=== PATIENT | male | born 1990 | race Caucasian/White ===

== ENCOUNTER 2016-08-05 23:18 | Emergency (ER) | payer BC ==
[~2016-08-05] VITALS: Ht 180.3 cm; Wt 140.9 kg
[2016-08-05 23:20] VITALS: Ht 180.3 cm; Wt 140.9 kg
--- NOTE | 2016-08-06 01:51 | RADRPT ---
PROCEDURE: RIGHT GREAT TOE - 3 VIEWS CLINICAL INDICATION: 26-year-old male with crush injury to the right great toe. TECHNIQUE: AP, lateral and oblique views of the right great toe was obtained. The images were rev iewed on a PACS workstation. COMPARISON: None. FINDINGS: The bones of the right great toe appear intact, with no evidence of fracture, dislocation, or sublux ation. The joint spaces are preserved. Bone mineralization is within normal limits. IMPRESSION: Unremarkable right great toe radiographs. .Moises Bauman MD, MD Date Time Electronically viewed and signed by .Moises Bauman MD, on 08/06/2016 01:51 .M/
--- NOTE | 2016-08-06 01:58 | ERD ---
ER Documentation Chief Complaint Date/Time DATE: 08/06/16 TIME: 01:58 Chief Complaint bleeding R big toe ingrown nail today HPI This is a 26-year-old male presenting to the emergency department complaining of a right first toe ingrown toenail for the past 6 months. Patient states that while he was walking today something crushed his toe and then it started bleeding. Patient rates the pain 6 out of 10. He denies any fevers. ROS All systems reviewed and are negative except as per history of present illness. Medications Home Meds Active Scripts Sulfamethoxazole-Trimethoprim* (Bactrim* DS) 800-160 Mg Tab, 1 TAB PO BID for 10 Days, TAB Prov:GWENDOLYN BEAULIEU PA-C 08/06/16 Cephalexin* (Keflex*) 500 Mg Capsule, 500 MG PO QID for 10 Days, CAP Prov:GWENDOLYN BEAULIEU PA-C 08/06/16 Allergies Allergies: Coded Allergies: No Known Allergy (Unverified , 08/05/16) PMhx/Soc Medical and Surgical Hx: pt denies Medical Hx, pt denies Surgical Hx Hx Alcohol Use: Yes (SOCIALLY) Hx Substance Use: No Hx Tobacco Use: No Smoking Status: Never smoker Physical Exam Vitals Vital Signs Date Time Temp Pulse Resp B/P Pulse Ox O2 Delivery O2 Flow Rate FiO2 08/06/16 02:31 83 16 134/83 98 Room Air 08/05/16 23:20 98.9 103 18 155/75 97 Physical Exam General: WD/WN, in no apparent distress, non-toxic appearing HENT: NC/AT Eyes: Conjunctiva normal Neck: Supple Pulm: Clear to auscultation, normal labored breathing; no wheezing/rales/ rhonchi heard CV: Good capillary refill GI: Non-distended, no guarding Back: No masses Ext: No clubbing, cyanosis, or edema Neuro: Moves on all fours Skin: right great toe - medial side of nail has ingrown toenail that has already been clipped away, lateral nail bed has granulomatous lesion Psych: Normal mood Results 24 hrs Current Medications Medications (Trade) Dose Ordered Sig/Tarsha Route PRN Reason Start Time Stop Time Status Last Admin Dose Admin Lidocaine (Xylocaine 2% (Mdv) 20 ml) 20 ml ONCE ONCE INJ 08/06/16 02:00 1/16/17 02:01 DC PROCEDURE: RIGHT GREAT TOE - 3 VIEWS CLINICAL INDICATION: 26-year-old male with crush injury to the right great toe. TECHNIQUE: AP, lateral and oblique views of the right great toe was obtained. The images were reviewed on a PACS workstation. COMPARISON: None. FINDINGS: The bones of the right great toe appear intact, with no evidence of fracture, dislocation, or subluxation. The joint spaces are preserved. Bone mineralization is within normal limits. IMPRESSION: Unremarkable right great toe radiographs. .Moises Bauman MD, Date Time Electronically viewed and signed by .Moises Bauman MD, on 08/06/2016 01:51 .M/ CC: GWENDOLYN BEAULIEU PA-C Procedures/MDM This is a 26-year-old male presenting to the emergency room complaining of a right big toe ingrown nail for 6 months and bleeding status post getting crushed by an object earlier today. On examination patient did have a ingrown toenail on the right medial aspect of the nail bed that has already been clipped away, on the lateral aspect of the nail bed patient has a pyogenic granuloma, which likely caused the bleeding due to the minor trauma that occurred. I will low suspicion for fracture or dislocation, an x-ray was done and did not show any evidence of fracture dislocation. Patient will be treated empirically with outpatient antibiotics keflex and bactrim. I have discussed the patient that he would need to follow-up with the fishing manager in the next couple days to remove the nail bed and a pyogenic granuloma. I discussed if he is not able to do that, to follow-up at [facility]. In the ED the first right great toe was cleansed with betadine and a digital block was performed with 1% lidocaine without epi. I was about to excise the nail bed however felt it was better for him to follow-up with podiatry due to the pyogenic granuloma. was consulted regarding this and he advised my plan and agrees with above. Patient is hemodynamically and neurovascular intact for discharge. Discussed return to the ER for any worsening or symptoms. He understands and agrees Departure Diagnosis: Primary Impression: Ingrown nail Additional Impression: Pyogenic granuloma Condition: Stable GWENDOLYN BEAULIEU PA-C Aug 06, 2016 01:58
[2016-08-06] MEDS ORDERED: LIDOCAINE 2% (MDV) 20 ML INJ INJ ONE (02:00)
[2016-08-06] MEDS ORDERED: BACTDS PO (02:19)
[2016-08-06] MEDS ORDERED: CEPH-443 PO (02:19)
[2016-08-06 02:31] VITALS: BP 134/83; PULSE 83; RESP 16
== END 2016-08-06 02:30 | disposition home or self-care (01) ==
LOC: FTE 23:18
DX: L60.0 Ingrowing nail (principal); L98.0 Pyogenic granuloma
CPT/HCPCS: 73660